=== PATIENT | female | born 1980 | race Caucasian/White ===

== ENCOUNTER → 2018-08-12 | Outpatient (REF) | payer OTHER ==
[2018-08-14 00:09] LABS: Lyme Disease IgG/IgM Antibodie <0.91 ISR (0.00-0.90); Lyme Disease IgM Ab Quantitati <0.80 index (0.00-0.79)
== END ==
LOC: M LAB REF 13:34
PROVIDERS: ATTEND Physician Assistant Medical
DX: Z11.8 Encounter for screening for other infectious and parasitic diseases (principal)

== ENCOUNTER → 2018-08-27 | Outpatient (CLI) | payer OTHER ==
[2018-08-27 10:14] LABS: ALT/SGPT 21 U/L (12-78); BILIRUBIN,TOTAL 1.3 MG/DL (0.2-1.0); BLOOD UREA NITROGEN 10 MG/DL (7-18); CALCIUM LEVEL 9.1 MG/DL (8.5-10.1); CARBON DIOXIDE LEVEL 28 MEQ/L (21-32); CHLORIDE LEVEL 107 MEQ/L (98-107); CHOLESTEROL LEVEL 148 MG/DL (<200); CHOLESTEROL RISK RATIO 2.276 (<5); CREATININE FOR GFR 0.64 MG/DL (0.55-1.30); GLOMERULAR FILTRATION RATE > 60.0 (>60); GLUCOSE, FASTING 80 MG/DL (70-100); HDL CHOLESTEROL 65 MG/DL (>40); LDL CHOLESTEROL 70 MG/DL (<100); NON-HDL-C 83 MG/DL; POTASSIUM SERUM 4.5 MEQ/L (3.5-5.1); SODIUM LEVEL 141 MEQ/L (136-145); TRIGLYCERIDES LEVEL 63 MG/DL (<150)
== END ==
LOC: M WUC 08:15
PROVIDERS: ATTEND Family Medicine
DX: Z00.00 Encounter for general adult medical examination without abnormal findings (principal); Z13.220 Encounter for screening for lipoid disorders; Z13.1 Encounter for screening for diabetes mellitus; Z82.3 Family history of stroke; Z83.3 Family history of diabetes mellitus

== ENCOUNTER → 2018-09-25 | Outpatient (REF) | payer OTHER ==
[2018-09-25 16:54] LABS: ALBUMIN 4.2 GM/DL (3.2-5.2); ALT/SGPT 25 U/L (12-78); BILIRUBIN,TOTAL 1.1 MG/DL (0.2-1.0); BLOOD UREA NITROGEN 14 MG/DL (7-18); CALCIUM LEVEL 9.8 MG/DL (8.5-10.1); CARBON DIOXIDE LEVEL 30 MEQ/L (21-32); CHLORIDE LEVEL 105 MEQ/L (98-107); FREE THYROXINE INDEX 2.9 % (1.3-4.8); GLOMERULAR FILTRATION RATE > 60.0 (>60); GLUCOSE, FASTING 83 MG/DL (70-100); RHEUMATOID FACTOR QUANT < 10.0 IU/ML (<15.0); SODIUM LEVEL 141 MEQ/L (136-145); T UPTAKE 30 % (30-39); THYROXINE (T4) 9.6 UG/DL (4.5-12.0); TOTAL PROTEIN 7.3 GM/DL (6.4-8.2)
[2018-09-25 17:07] LABS: HEMATOCRIT 40.3 % (36.0-47.0); HEMOGLOBIN 12.8 g/dl (12.0-15.5); MEAN CORPUSCULAR HEMOGLOBIN 27.7 pg (27.0-33.0); MEAN CORPUSCULAR HGB CONC 31.8 g/dl (32.0-36.5); MEAN CORPUSCULAR VOLUME 87.2 fl (80.0-96.0); PLATELET COUNT, AUTOMATED 181 10^3/uL (150-450); RED BLOOD COUNT 4.62 10^6/uL (4.00-5.40); WHITE BLOOD COUNT 6.4 10^3/uL (4.0-10.0)
[2018-09-25 20:29] LABS: ERYTHROCYTE SEDIMENTATION RATE 6 mm/hr (0-20)
[2018-09-28 00:07] LABS: ANA (HEP2) Negative (.); Lyme Disease IgG Ab 18 kDa Ban Present (.); Lyme Disease IgG Ab 23 kDa Ban Present (.); Lyme Disease IgG Ab 28 kDa Ban Absent (.); Lyme Disease IgG Ab 30 kDa Ban Absent (.); Lyme Disease IgG Ab 39 kDa Ban Present (.); Lyme Disease IgG Ab 41 kDa Ban Present (.); Lyme Disease IgG Ab 45 kDa Ban Absent (.); Lyme Disease IgG Ab 58 kDa Ban Absent (.); Lyme Disease IgG Ab 66 kDa Ban Absent (.); Lyme Disease IgG Ab 93 kDa Ban Absent (.); Lyme Disease IgG West Blot Int Negative (.); Lyme Disease IgG/IgM Antibodie 1.92 ISR (0.00-0.90); Lyme Disease IgM Ab 23 kDa Ban Present (.); Lyme Disease IgM Ab 39 kDa Ban Present (.); Lyme Disease IgM Ab 41 kDa Ban Present (.); Lyme Disease IgM Ab Quantitati 6.74 index (0.00-0.79); Lyme Disease IgM West Blot Int Positive (.)
== END ==
LOC: M SFHCCLAY 11:35
PROVIDERS: ATTEND Nurse Practitioner Family
DX: R51 Headache (principal); M25.50 Pain in unspecified joint; R53.83 Other fatigue

== ENCOUNTER → 2018-09-30 | Outpatient (CLI) | payer OTHER ==
--- NOTE | 2018-09-30 16:47 | REP ---
Head CT without contrast: History: Headaches. Comparison study: Comparison is made with images from maxillofacial CT study done at [facility] on May 25, 2009. CT findings: Bone window settings demonstrate an intact bony calvarium. There is no evidence of skull fracture or incidental bony calvarial lesion. The visualized paranasal sinuses appear clear. No intraorbital abnormality is seen. On soft tissue window setting images; the lateral, third, and fourth ventricles are normal in size and position. Fuller-white differentiation pattern is normal above and below the tentorium. There are is no evidence of intracranial hemorrhage. No mass, edema, infarction, or midline shift is seen. No extra-axial fluid collection is appreciated. Impression: Negative noncontrast head CT. Electronically Signed by Kayden Ann MD 09/30/2018 04:39 P
== END ==
LOC: M RAD 15:28
PROVIDERS: ATTEND Nurse Practitioner Family
DX: R51 Headache (principal)

== ENCOUNTER → 2018-10-02 | Outpatient (REF) | payer OTHER ==
[2018-10-04 14:50] LABS: HPV HYBRID CAPTURE II Negative (Negative)
== END ==
LOC: M SFHCWAGY 12:10
PROVIDERS: ATTEND Nurse Practitioner Women's Health
DX: Z12.4 Encounter for screening for malignant neoplasm of cervix (principal)
CPT/HCPCS: 87624; G0123

== ENCOUNTER 2018-11-22 11:42 | Day surgery (SDC) | payer OTHER ==
[~2018-11-22] VITALS: Ht 162.6 cm; Wt 68.9 kg
[~2018-11-22 11:42] MED LIST: NS 1,000 ML IV ONE
[2018-11-22] MEDS ORDERED: PROPOFOL 200 MG/20 ML VIAL As Ordered ONE ×2 (12:07→13:02)
[2018-11-22] MEDS ORDERED: LIDOCAINE 2% INJ 100 MG/5 ML SDV (FOR ANES.) As Ordered ONE (12:08)
[2018-11-22] MEDS ORDERED: fentaNYL 100 MCG/2 ML INJECTION (J3010) As Ordered ONE (12:12)
--- NOTE | 2018-11-22 12:53 | ROOR ---
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 Procedure: Pre-Anesthesia Assessment: - The heart rate, respiratory rate, oxygen saturations, blood pressure, adequacy of pulmonary ventilation, and response to care were monitored throughout the procedure. The Endoscope was introduced through the mouth, and advanced to the third part of duodenum. The upper GI endoscopy was accomplished without difficulty. The patient tolerated the procedure well. Findings: The esophagus was normal. The stomach was normal. The examined duodenum was normal. Impression: - Normal esophagus. - Normal stomach. - Normal examined duodenum. - No specimens collected. Recommendation: - Repeat upper endoscopy in 2 years for surveillance. Ivan Daly MD Ivan DALY MD 11/22/2018 12:53:08 PM Electronically signed by Ivan DALY MD Number of Addenda: 0 Note Initiated On: 11/22/2018 12:40 PM Estimated Blood Loss: Estimated blood loss: none.
--- NOTE | 2018-11-22 13:16 | ROOR ---
Patient Name: Julia Mojica Procedure Date: 11/22/2018 12:41 PM Date of : 1980 Age: 38 Room: [facility] Gender: Female Note Status: Finalized Procedure: Colonoscopy Indications: Ferrera Syndrome Providers: Ivan DALY MD Referring MD: Jennifer Duffy NP Requesting Provider: Medicines: Monitored Anesthesia Care Complications: No immediate complications. Procedure: Pre-Anesthesia Assessment: - The heart rate, respiratory rate, oxygen saturations, blood pressure, adequacy of pulmonary ventilation, and response to care were monitored throughout the procedure. The Colonoscope was introduced through the anus and advanced to 10 cm into the ileum. The colonoscopy was performed without difficulty. The patient tolerated the procedure well. The quality of the bowel preparation was excellent. Findings: The perianal and digital rectal examinations were normal. The colon (entire examined portion) appeared normal. A localized area of mucosa in the distal ileum was nodular. Biopsies were taken with a cold forceps for histology. Impression: - The entire colon is normal. - Nodular ileal mucosa. Biopsied. Recommendation: - Telephone endoscopist for pathology results in 2 weeks. - Repeat colonoscopy in 1 year for surveillance. Ivan Daly MD Ivan DALY MD 11/22/2018 1:16:07 PM Electronically signed by Ivan DALY MD Number of Addenda: 0 Note Initiated On: 11/22/2018 12:41 PM Estimated Blood Loss: Estimated blood loss: none.
[2018-11-22 13:45] VITALS: BP 110/56
== END 2018-11-22 13:49 | disposition home or self-care (01) ==
LOC: M OPP 11:42
PROVIDERS: ATTEND Internal Medicine Gastroenterology
DX: K63.89 Other specified diseases of intestine (principal); Z15.09 Genetic susceptibility to other malignant neoplasm; Z80.1 Family history of malignant neoplasm of trachea, bronchus and lung; Z80.3 Family history of malignant neoplasm of breast; Z80.41 Family history of malignant neoplasm of ovary
CPT/HCPCS: 43235; 45380; 88305; J3010

== ENCOUNTER → 2018-12-04 | Outpatient (REF) | payer OTHER | LOC: M SFHCWAGY 15:17 | PROVIDERS: ATTEND Nurse Practitioner Women's Health | DX: Z15.09 Genetic susceptibility to other malignant neoplasm (principal) ==

== ENCOUNTER → 2018-12-04 | Outpatient (CLI) | payer OTHER ==
--- NOTE | 2018-12-04 19:11 | REP ---
Clinical: History of ovarian carcinoma. Technique: Transabdominal pelvic ultrasound followed by transvaginal examination for better evaluation of the endometrium and adnexa with color Doppler evaluation of the ovaries. Findings: Heterogeneous anteverted uterus measures 7.0 x 2.5 x 4.7 cm and includes 1.7 x 1.7 x 1.9 cm left posterior intramural fibroid. Endometrial complex measures 4 mm thickness. Bilateral ovaries are normal in appearance and vascularity without torsion. Right ovary measures 1.8 x 1.0 x 2.4 cm (RI 0.50). Left ovary measures 1.8 x 1.2 x 2.5 cm (RI 0.52). Bladder is unremarkable and measures 11.6 x 9.7 x 7.4 cm. Impression: 1.9 cm posterior intramural fibroid.
== END ==
LOC: M WHC 12:57
PROVIDERS: ATTEND Nurse Practitioner Women's Health
DX: Z80.41 Family history of malignant neoplasm of ovary (principal); D25.1 Intramural leiomyoma of uterus

== ENCOUNTER → 2018-12-06 | Outpatient (CLI) | payer OTHER ==
[~2018-12-06] MED LIST changes: -NS 1,000 ML IV ONE; +PROHANCE 279.3MG/ML 15ML VIAL (A9576) As Ordered ONE
--- NOTE | 2018-12-06 11:34 | REP ---
MRI PANCREAS: TECHNIQUE: Multiple sequences obtained in the axial and coronal planes prior to and following the intravenous administration of 13 mL ProHance. Pancreas is homogeneous in signal. There is no pancreatic mass. No abnormal enhancement is seen in the pancreas. The pancreatic duct is not dilated. Visualized liver is unremarkable with no mass. Visualized spleen is also unremarkable. The adrenal glands are normal. The kidneys demonstrate no mass. I see no adenopathy or free fluid in the visualized abdomen. IMPRESSION: Negative MRI pancreas. Electronically Signed by Eliel Fuller MD 12/07/2018 11:06 A
== END ==
LOC: M RAD 09:04
PROVIDERS: ATTEND Internal Medicine Gastroenterology
DX: Z15.09 Genetic susceptibility to other malignant neoplasm (principal); Z80.0 Family history of malignant neoplasm of digestive organs
CPT/HCPCS: 74183; A9576

== ENCOUNTER → 2019-09-30 | Outpatient (CLI) | payer OTHER ==
[~2019-09-30] MED LIST changes: +ACET1TAB16 PO; +IBUP200C25 PO; +ONDA4TAB6 PO; -PROHANCE 279.3MG/ML 15ML VIAL (A9576) As Ordered ONE
== END ==
LOC: M RAD 16:23
PROVIDERS: ATTEND Otolaryngology
DX: J32.4 Chronic pansinusitis (principal)

== ENCOUNTER → 2019-12-05 | Outpatient (CLI) | payer OTHER | LOC: M LABSMTC 09:58 | PROVIDERS: ATTEND Anesthesiology | DX: Z01.812 Encounter for preprocedural laboratory examination (principal); Z20.828 Contact with and (suspected) exposure to other viral communicable diseases | CPT/HCPCS: C9803; U0003 ==

== ENCOUNTER 2019-12-10 11:52 | Day surgery (SDC) | payer OTHER ==
[~2019-12-10] VITALS: Ht 162.6 cm; Wt 81.6 kg
[~2019-12-10 11:52] MED LIST changes: -ACET1TAB16 PO; +LIDOCAINE 1% MDV 20ML VIAL SQ PRN; -ONDA4TAB6 PO
[2019-12-10] MEDS ORDERED: ROCURONIUM BROMIDE 50 MG/5 ML VIAL As Ordered ONE (12:31)
[2019-12-10] MEDS ORDERED: propofoL 200 MG/20 ML VIAL As Ordered ONE (12:31)
[2019-12-10] MEDS ORDERED: MIDAZOLAM INJ 2MG/2ML VIAL (J2250 PER 1MG) As Ordered ONE (12:31)
[2019-12-10] MEDS ORDERED: fentaNYL 250 MCG/5 ML INJECTION (J3010) As Ordered ONE (12:31)
[2019-12-10] MEDS ORDERED: dexameTHASONE 4 MG/ML 1ML VIAL (J1100 PER 1MG) As Ordered ONE (12:31)
[2019-12-10] MEDS ORDERED: LIDOCAINE 2% 100MG/5ML SDV (FOR ANES.) As Ordered ONE (12:31)
[2019-12-10] MEDS ORDERED: ONDANSETRON 4MG/2ML VIAL As Ordered ONE (12:31)
[2019-12-10] MEDS ORDERED: LR 1,000 ML IV ONE (13:15)
[2019-12-10] MEDS ORDERED: LIDOCAINE W/EPINEPHRINE 1% 20ML VIAL As Ordered ONE (13:26)
[2019-12-10] MEDS ORDERED: EPINEPHrine 1MG/ML INJ 30ML MD-VIAL As Ordered ONE (13:26)
[2019-12-10] MEDS ORDERED: METHYLENE BLUE 0.5% (5MG/ML) 10 ML AMP (PROVAYBLUE) As Ordered ONE ×2 (13:27→14:16)
[2019-12-10] MEDS ORDERED: LACRILUBE (AKWA TEARS) OPHTH OINT 3.5 GM As Ordered ONE (14:00)
[2019-12-10] MEDS ORDERED: SUGAMMADEX SODIUM 500 MG/5 ML VIAL (BRIDION) As Ordered ONE (14:04)
[2019-12-10] MEDS ORDERED: LR 1,000 ML IV SCH ×2 (14:45→15:00)
[2019-12-10] MEDS ORDERED: ACETAMINOPH W/CODEINE #3 TAB UD PO PRN (14:45)
[2019-12-10] MEDS ORDERED: oxyCODONE 5MG TAB PO PRN (15:00)
[2019-12-10] MEDS ORDERED: fentaNYL 100 MCG/2 ML INJECTION (J3010) IV PRN (15:00)
[2019-12-10] MEDS ORDERED: ONDANSETRON 4MG/2ML VIAL IV PRN (15:00)
[2019-12-10 16:00] VITALS: BP 144/64
--- NOTE | 2019-12-12 08:35 | RO ---
DATE OF OPERATION: 12/10/2019 PREOPERATIVE DIAGNOSIS: Chronic allergic rhinitis. POSTOPERATIVE DIAGNOSIS: Chronic allergic rhinitis. OPERATIVE PROCEDURE: Bilateral turbinectomy. SURGEON: Waldo Newsome MD [employer]: ANESTHESIA: General. DESCRIPTION OF PROCEDURE: With the patient intubated, the patient was prepped and draped in usual manner. I used pledgets of Adrenalin 1:100,000 and infiltrated with Lidocaine with Epinephrine. I started on the right side. I made incision anterior. I elevated mucosa off the jessika. I mobilized the jessika. I used a micro debrider to remove the jessika. I also used some forceps. The same procedure was performed on both sides. I sutured the incision anteriorly with 4- 0 Vicryl. I cauterized the inferior aspect of the inferior turbinate after I ran the micro debrider inferiorly over the turbinate. The patient tolerated the procedure well. Less than 20 mL of estimated blood loss. The patient extubated and transferred to recovery room in excellent condition. WILBER
== END 2019-12-10 16:15 | disposition home or self-care (01) ==
LOC: M SDC 11:52
PROVIDERS: ATTEND Otolaryngology
DX: J31.0 Chronic rhinitis (principal); Z15.09 Genetic susceptibility to other malignant neoplasm; J45.909 Unspecified asthma, uncomplicated
CPT/HCPCS: 30802; 81025; J1100; J2250; J2405; J3010; Q9968

== ENCOUNTER 2019-12-14 22:42 | Emergency (ER) | payer OTHER ==
[~2019-12-14] VITALS: Ht 162.6 cm; Wt 79.3 kg
[~2019-12-14 22:42] MED LIST changes: -LIDOCAINE 1% MDV 20ML VIAL SQ PRN
[2019-12-14] MEDS ORDERED: ACET1TAB16 PO (23:11)
[2019-12-15 00:06] VITALS: BP 133/59
[2019-12-15] MEDS ORDERED: ONDA4TAB6 PO (00:09)
[2019-12-15] MEDS ORDERED: LIDOCAINE VISCOUS 2% SOLN 15ML UDC SS ONE (00:15)
[2019-12-15] MEDS ORDERED: NORCO 5/325MG TABLET (BULK FOR ED) PO ONE (00:15)
[2019-12-15] MEDS ORDERED: ONDANSETRON 4 MG ORAL DISINTEGRATING TAB PO ONE (00:15)
== END 2019-12-15 00:23 | disposition home or self-care (01) ==
LOC: M ED 22:42
DX: G89.28 Other chronic postprocedural pain (principal); Z15.09 Genetic susceptibility to other malignant neoplasm; J30.9 Allergic rhinitis, unspecified
CPT/HCPCS: 99283; Q0162

== ENCOUNTER → 2022-06-21 | Outpatient (REF) | payer OTHER ==
[~2022-06-21] MED LIST changes: +ACET300T48 PO; +ONDA4TAB6 PO
== END ==
LOC: M SFHCWAGY 17:50
PROVIDERS: ATTEND Nurse Practitioner Women's Health
DX: Z12.4 Encounter for screening for malignant neoplasm of cervix (principal)
CPT/HCPCS: 87624; G0123

== ENCOUNTER → 2024-01-03 | Outpatient (REF) | payer OTHER ==
[~2024-01-03] MED LIST changes: +ONDA-282 PO; -ONDA4TAB6 PO
== END ==
LOC: M PLALAB 12:04
PROVIDERS: ATTEND Obstetrics & Gynecology
DX: Z01.419 Encounter for gynecological examination (general) (routine) without abnormal findings (principal); Z53.9 Procedure and treatment not carried out, unspecified reason

== ENCOUNTER → 2024-11-20 | Outpatient (CLI) | payer OTHER | LOC: M PLAIMG 15:01 | PROVIDERS: ATTEND Chiropractor | DX: M51.362 Other intervertebral disc degeneration, lumbar region with discogenic back pain and lower extremity pain (principal); M50.31 Other cervical disc degeneration, high cervical region; M62.830 Muscle spasm of back; M99.03 Segmental and somatic dysfunction of lumbar region; M99.01 Segmental and somatic dysfunction of cervical region ==